=== PATIENT | male | born 1965 | race Caucasian/White ===

== ENCOUNTER 2019-01-24 10:33 | Emergency (ER) | payer OTHER ==
[~2019-01-24] VITALS: Ht 185.4 cm; Wt 113.4 kg
[2019-01-24] MEDS ORDERED: Silvadene20 GM TOP (11:51)
[2019-01-24] MEDS ORDERED: Norco 5-325 Ta1 EACH PO (11:58)
== END 2019-01-24 12:01 | disposition home or self-care (01) ==
LOC: ER 10:33
DX: T22.00XA Burn of unspecified degree of shoulder and upper limb, except wrist and hand, unspecified site, initial encounter (principal); T31.0 Burns involving less than 10% of body surface; X08.8XXA Exposure to other specified smoke, fire and flames, initial encounter; E11.9 Type 2 diabetes mellitus without complications
CPT/HCPCS: 16020; 99283-25

== ENCOUNTER 2019-11-05 13:47 | Emergency (ER) | payer OTHER ==
[~2019-11-05] VITALS: Ht 188 cm; Wt 109.8 kg
[~2019-11-05 13:47] MED LIST: Norco 5-325 Ta1 EACH PO; Silvadene20 GM TOP
[2019-11-05 14:49] LABS: BASOPHILS ABSOLUTE AUTO 0.05 K/mm3 (0.00-0.23); BASOPHILS PERCENT AUTO 1 % (0-2); EOSINOPHILS PERCENT AUTO 0 % (0-6); Hematocrit 46.6 % (37.0-53.0); Hemoglobin 15.5 g/dL (13.5-17.5); IMMATURE GRAN ABSOLUTE AUTO 0.04 K/mm3 (0.00-0.10); IMMATURE GRAN PERCENT AUTO 0 % (0-1); LYMPHOCYTES ABSOLUTE AUTO 0.58 K/mm3 (0.84-5.20); LYMPHOCYTES PERCENT AUTO 6 % (21-46); MONOCYTES PERCENT AUTO 6 % (4-13); Mean Corpuscular HGB 29.7 pg (26.0-34.0); Mean Corpuscular HGB Conc 33.3 g/dL (31.5-36.5); Mean Corpuscular Volume 89 fL (80-100); Mean Platelet Volume 9.2 fL (9.1-12.4); NEUTROPHILS ABSOLUTE AUTO 8.41 K/mm3 (1.96-9.15); NEUTROPHILS PERCENT AUTO 87 % (41-73); Platelet Count 148 K/mm3 (150-400); RDW Coefficient Variation 13.9 % (11.7-14.2); RDW Standard Deviation 45.7 fL (35.1-46.3); Red Blood Cell Count 5.22 M/mm3 (4.30-5.90); White Blood Cell Count 9.68 K/mm3 (4.00-11.30)
[2019-11-05 14:57] LABS: Source, Urine Clean Catch
[2019-11-05 15:03] LABS: Blood, Urine 4+ (Neg); Glucose Qualitative, Urine Neg (Neg); Ketones, Urine 3+ (Neg); Leukocyte Esterase, Urine 1+ (Neg); Nitrite, Urine Neg (Neg); Protein, Urine 2+ (Neg); Specific Gravity, Urine 1.015 (1.003-1.022); Urobilinogen, Urine 1+ (Normal)
[2019-11-05 15:08] LABS: Appearance, Urine Clear (Clear); Bilirubin, Urine 1+ (Neg); Color, Urine Amber (P-Yellow)
[2019-11-05 15:10] LABS: Bacteria Few /hpf; Mucus Light (0-Heavy); Squamous Epithelial Cells Not Seen /hpf (Few); White Blood Cells, Urine 0-2 /hpf (0-5)
[2019-11-05 15:19] LABS: Alanine Aminotransfer (ALT/SGP 34 U/L (12-78); Albumin, Blood 3.7 g/dL (3.4-5.0); Albumin/Globulin Ratio 0.7 (0.8-1.8); Alk Phos 115 U/L (50-136); Anion Gap 9 mmol/L (6-16); Aspartate Aminotrans (AST/SGOT 29 U/L (12-37); Bilirubin, Total 1.2 mg/dL (0.1-1.0); Blood Urea Nitrogen 11 mg/dL (8-24); Bun/Creatinine Ratio 10.4 (12.0-20.0); CO2, Blood 20 mmol/L (21-32); Calcium, Blood 9.2 mg/dL (8.5-10.1); Chloride, Blood 107 mmol/L (98-108); Creatinine, Blood 1.06 mg/dL (0.60-1.20); Glomerular Filtration Rate >60 (60-); Glucose, Blood 135 mg/dL (70-99); Potassium, Blood 3.4 mmol/L (3.5-5.5); Sodium, Blood 136 mmol/L (136-145); Total Protein, Blood 8.7 g/dL (6.4-8.2); Troponin I <0.015 ng/mL (0.000-0.040)
[2019-11-05] MEDS ORDERED: Prozac20 MG PO (18:15)
[2019-11-05] MEDS ORDERED: OMEP20ER PO (18:16)
[2019-11-05] MEDS ORDERED: STATIN (18:16)
[2019-11-05] MEDS ORDERED: ASPI81CH PO (18:16)
[2019-11-05] MEDS ORDERED: IBUP800 PO (18:16)
[2019-11-05] MEDS ORDERED: ONDA4 PO (20:06)
[2019-11-05] MEDS ORDERED: Flagyl500 MG PO (20:06)
[2019-11-05] MEDS ORDERED: Cipro500 MG PO (20:06)
[2019-11-05] MEDS ORDERED: DIPATR PO (20:06)
== END 2019-11-05 20:18 | disposition home or self-care (01) ==
LOC: ER 13:47
PROVIDERS: Physician Assistant
DX: K52.9 Noninfective gastroenteritis and colitis, unspecified (principal); R91.1 Solitary pulmonary nodule
CPT/HCPCS: 36415; 71045; 74177; 80053; 81001; 83690; 84484; 85025; 87086; 93005; 93010; 96361-59; 96374-59; 96376-59; 99285-25; A9270-GY; J2405; J7030; Q9967

== ENCOUNTER → 2021-10-21 | Outpatient (CLI) | payer OTHER ==
[~2021-10-21] MED LIST changes: +ASPI81CH PO; +Cipro500 MG PO; +DIPATR PO; +Flagyl500 MG PO; +IBUP800 PO; +OMEP20ER PO; +ONDA4 PO; +Prozac20 MG PO; +STATIN
== END | disposition home or self-care (01) ==
LOC: LAB SHORT 08:31 → PLD 08:31
DX: C44.722 Squamous cell carcinoma of skin of right lower limb, including hip (principal)
CPT/HCPCS: 88305

== ENCOUNTER → 2022-03-08 | Outpatient (CLI) | payer OTHER ==
[2022-03-08 17:08] LABS: Microalb/Creat Ratio UR, Rand 30.308 mg/g (0.000-30.000); Microalbumin, Random Urine 39.4 mg/L (0.000-20.000)
== END | disposition home or self-care (01) ==
LOC: LAB SHORT 14:00 → LAB 14:00
PROVIDERS: Physician Assistant
DX: E11.9 Type 2 diabetes mellitus without complications (principal)
CPT/HCPCS: 82043; 82570